=== PATIENT | female | born 1970 | race Asian ===

== ENCOUNTER 2021-09-12 07:59 | Outpatient (CLI) | payer BC | END 2021-09-12 23:59 | disposition home or self-care (01) | LOC: LAB 07:59 | PROVIDERS: ATTEND Internal Medicine Gastroenterology | DX: Z01.812 Encounter for preprocedural laboratory examination (principal); Z20.822 Contact with and (suspected) exposure to COVID-19 ==

== ENCOUNTER 2021-09-15 08:16 | Day surgery (SDC) | payer BC ==
[2021-09-15] MEDS ORDERED: LIDOCAINE-MPF 2% 5 ML VIAL IJ ONE (08:17)
[2021-09-15] MEDS ORDERED: PROPOFOL 200 MG/20 ML BOTTLE IV ONE (08:17)
[2021-09-15 08:42] LABS: *BILIRUBIN,URIN NEGATIVE (NEGATIVE); *BLOOD, URINE NEGATIVE (NEGATIVE); *CLARITY,URINE CLEAR (CLEAR); *COLOR,URINE YELLOW (YELLOW); *KETONES,URINE TRACE (NEGATIVE); *UROBILINOGEN,URINE 0.2 E.U./dl (NORMAL); LEUKOCYTE ESTERASE ,URINE NEGATIVE (NEGATIVE); NITRITE, URINE NEGATIVE (NEGATIVE); PH,URINE 5.5 (5.0-8.0); UGLUCOSE NEGATIVE (NEGATIVE)
[2021-09-15 09:08] LABS: MEAN CORPUSCULAR HEMOGLOBIN 31.9 uug (24.7-32.8); MEAN CORPUSCULAR VOLUME 91.7 fL (75.5-95.3); PLATELET COUNT (AUTO) 241 K/uL (179-408)
[2021-09-15 09:14] LABS: CREATININE 0.7 mg/dL (0.6-1.3); POTASSIUM 3.8 mmol/L (3.5-5.1)
[2021-09-15 09:20] LABS: BILIRUBIN,TOTAL 0.2 mg/dL (0.2-1.0)
== END 2021-09-15 12:45 | disposition home or self-care (01) ==
LOC: DS 08:16
PROVIDERS: ATTEND Internal Medicine Gastroenterology
DX: Z12.11 Encounter for screening for malignant neoplasm of colon (principal); K64.8 Other hemorrhoids; K63.89 Other specified diseases of intestine; E11.9 Type 2 diabetes mellitus without complications; Z87.440 Personal history of urinary (tract) infections; Z79.899 Other long term (current) drug therapy; Z79.84 Long term (current) use of oral hypoglycemic drugs; Z98.890 Other specified postprocedural states; Z72.89 Other problems related to lifestyle
CPT/HCPCS: 36415; 45378; 71045; 80053; 81003; 82962; 85025; 85730; 93005; J3490; A4663